=== PATIENT | female | born 1965 | race African-American/Black ===

== ENCOUNTER 2017-02-17 16:24 | Observation (INO) | payer BC, OTHER ==
[~2017-02-17] VITALS: Ht 7 cm; Wt 121.2 kg
--- NOTE | ~2017-02-17 | EKG ---
[address] [address] ELECTROCARDIOGRAM REPORT Name: JOSE MIGUEL MACK Room #: 218-P [facility]#: [id number] Admission: 02/17/17 Attend Phys: Khoi Nicole DO Discharge: Date of : 69 Report #: [id number] THIS REPORT FOR: //name// 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
[~2017-02-17 16:24] MED LIST: PHENERGAN25 M1 RC; ZOFRAN ODT4 M1 PO
[2017-02-17 16:26] VITALS: BP 176/131
[2017-02-17] MEDS ORDERED: PREDNISONE 20 M20 MG PO (16:44)
[2017-02-17 17:21] LABS: BASOPHILS 0.6 % (0.0-2.0); EOSINOPHILS 0.1 % (0.0-3.0); HEMATOCRIT 40.5 % (37.0-47.0); HEMOGLOBIN 12.8 gm/dL (12.0-15.0); MCHC 31.7 g/dL (28.0-37.0); MCV 69.4 fL (80.0-100.0); MONOCYTES 6.9 % (1.0-8.0); PLATELET COUNT 397 thou/uL (150-400); POLYS 73.4 % (36.0-66.0); RBC 5.83 mil/uL (4.20-5.00); RDW 16.1 % (10.5-14.5); WBC 12.2 thou/uL (4.0-11.0)
[2017-02-17 17:37] LABS: MANUAL DIFF NO
[2017-02-17 18:04] LABS: ALBUMIN 3.6 g/dL (3.4-5.0); ALKALINE PHOSPHATASE 72 U/L (46-116); ANION GAP 8 mmol/L (7-16); BUN 10 mg/dL (7-18); CALCIUM 9.5 mg/dL (8.5-10.1); CHLORIDE 101 mmol/L (98-107); CO2 28 mmol/L (21-32); CREATININE 0.8 mg/dL (0.6-1.0); GLUCOSE 133 mg/dL (74-106); MAGNESIUM 2.1 mg/dL (1.8-2.4); POTASSIUM 3.6 mmol/L (3.5-5.1); SGOT 15 U/L (15-37); SGPT 16 U/L (30-65); SODIUM 137 mmol/L (136-145); TOTAL BILIRUBIN 0.2 mg/dL (<0.1-1.0); TOTAL PROTEIN 8.2 g/dL (6.4-8.2); TROPONIN-I < 0.04 ng/mL (<0.04-0.07)
[2017-02-17 19:16] VITALS: BP 155/92
[2017-02-17 19:24] VITALS: BP 138/74
[2017-02-17 19:49] VITALS: BP 146/91
[2017-02-17 23:29] VITALS: BP 123/67
[2017-02-18 05:00] VITALS: BP 154/91
[2017-02-18 05:54] LABS: HEMATOCRIT 36.5 % (37.0-47.0); HEMOGLOBIN 11.4 gm/dL (12.0-15.0); MCH 21.8 pg (26.0-34.0); MCHC 31.3 g/dL (28.0-37.0); MCV 69.7 fL (80.0-100.0); RBC 5.24 mil/uL (4.20-5.00); RDW 15.5 % (10.5-14.5); WBC 9.2 thou/uL (4.0-11.0)
[2017-02-18 06:15] LABS: ANION GAP 7 mmol/L (7-16); BUN 15 mg/dL (7-18); CALCIUM 8.7 mg/dL (8.5-10.1); CHLORIDE 106 mmol/L (98-107); CHOLESTEROL 158 mg/dL (<200); CO2 27 mmol/L (21-32); CREATININE 0.9 mg/dL (0.6-1.0); GLUCOSE 124 mg/dL (74-106); HDL CHOLESTEROL 52 mg/dL (>40); LDL CHOLESTEROL 97 mg/dL (<100); POTASSIUM 3.5 mmol/L (3.5-5.1); SODIUM 140 mmol/L (136-145); TRIGLYCERIDE 47 mg/dL (<150); VLDL 9 mg/dL (<40)
[2017-02-18 06:16] LABS: SERUM ASSESSMENT Clear
[2017-02-18] MEDS ORDERED: HYDROCHLOROTH12.5 M1 PO (09:53)
[2017-02-18] MEDS ORDERED: LISINOPRIL10 MG PO (09:53)
[2017-02-18] MEDS ORDERED: ASPIR 8181 MG PO (09:54)
[2017-02-18] MEDS ORDERED: KEFLEX500 MG PO (09:58)
[2017-02-18] MEDS ORDERED: FLONASE 0.05%50 MCG NASAL (09:58)
[2017-02-18 10:13] VITALS: BP 154/91
[2017-02-19 04:11] LABS: GLYCOHEMOGLOBIN (HGB A1C) 5.7 % (4.8-5.6)
== END 2017-02-18 10:50 | disposition home or self-care (01) ==
LOC: ER 16:24 → EROBS 19:02 → 2N 19:02 → ENTRNSPT 02-18 10:37 → EDTRNSPTSTS 02-18 10:45 → 2N 02-18 10:50
PROVIDERS: Emergency Medicine; Nurse Practitioner Family
DX: R07.9 Chest pain, unspecified (principal); I10 Essential (primary) hypertension; R51 Headache; D72.829 Elevated white blood cell count, unspecified; I25.2 Old myocardial infarction